=== PATIENT | male | born 1990 | race African-American/Black ===

== ENCOUNTER 2017-11-13 03:53 | Emergency (ER) | payer SELFPAY ==
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
[2017-11-13 05:05] VITALS: BP 127/76; PULSE 76; RESP 16; TEMP 97.9; O2SAT 96
--- NOTE | 2017-11-13 05:20 | CPEKG ---
Heart Rate: 63 RR Interval: 952 P-R Interval: 152 QRSD Interval: 96 QT Interval: 400 QTC Interval: 410 P Paradis: 63 QRS Paradis: 38 T Wave Paradis: 26 EKG Severity - NORMAL ECG - EKG Impression: SINUS RHYTHM Electronically Signed By: Tien Mas 13-Nov-2017 07:46:11
== END 2017-11-13 05:04 | disposition home or self-care (01) ==
DX: F41.9 Anxiety disorder, unspecified (principal); F17.200 Nicotine dependence, unspecified, uncomplicated